=== PATIENT | female | born 1980 | race Caucasian/White ===

== ENCOUNTER 2017-11-18 19:28 | Emergency (ER) | payer OTHER ==
--- NOTE | 2017-11-18 19:41 | PDOC ---
Rapid Medical Evaluation Time Seen by Provider: 11/18/17 19:36 Medical Evaluation: Allergies Allergy/AdvReac Type Severity Reaction Status Date / Time No Known Allergies Allergy Verified 11/14/14 18:20 11/18/17 19:36 I have performed a brief in-person evaluation of this patient. The patient presents with a chief complaint of: "abscess with discharge" between breasts, subjective fever, hx of breast reduction, denies N/V/D, Dr. Caro told to put warm soaks Pertinent physical exam findings: TTP between breasts, only able to visualize small 3mm area of erythema to L breast I have ordered the following: nothing The patient will proceed to the ED for further evaluation. Discharge Disposition - Diagnosis Skin infection - Referrals - Patient Instructions - Post Discharge Activity
[2017-11-18 19:44] VITALS: BP 133/80; PULSE 91; TEMP 98.5; BMI 28.3
--- NOTE | 2017-11-18 20:32 | PDOC ---
History of Present Illness - General Chief Complaint: Abscess Boil Stated Complaint: BREAST PAIN Time Seen by Provider: 11/18/17 19:36 History Source: Patient Exam Limitations: No Limitations Past History - Past Medical History Allergies/Adverse Reactions: Allergies Allergy/AdvReac Type Severity Reaction Status Date / Time No Known Allergies Allergy Verified 11/14/14 18:20 Home Medications: Ambulatory Orders Cephalexin Monohydrate [Keflex -] 500 mg PO BID #14 capsule 11/18/17 Sulfamethoxazole/Trimethoprim [Bactrim Ds -] 1 tab PO BID #14 tablet 11/18/17 Asthma: No Cancer: No Cardiac Disorders: No COPD: No Diabetes: No HTN: No Seizures: No Thyroid Disease: No - Surgical History Cholecystectomy: Yes - Suicide/Smoking/Psychosocial Hx Smoking History: Never smoked Have you smoked in the past 12 months: No Hx Alcohol Use: No Drug/Substance Use Hx: No Hx Substance Use Treatment: No *Physical Exam - Vital Signs Last Vital Signs Temp Pulse Resp BP Pulse Ox 98.5 F 91 H 18 133/80 100 11/18/17 19:37 11/18/17 19:37 11/18/17 19:37 11/18/17 19:37 11/18/17 19:37 *DC/Admit/Observation/Transfer Diagnosis at time of Disposition: Skin infection, Abscess - Discharge Dispostion Disposition: HOME Condition at time of disposition: Stable Admit: No - Prescriptions Prescriptions: Cephalexin Monohydrate [Keflex -] 500 mg PO BID #14 capsule Sulfamethoxazole/Trimethoprim [Bactrim Ds -] 1 tab PO BID #14 tablet - Referrals Referrals: Scout Padilla MD [Primary Care Provider] - - Patient Instructions Printed Discharge Instructions: DI for Wound Infection Additional Instructions: You have an abscess. It is open and draining currently. Please take Bactrim and Keflex twice a day for one week to help with the infection. Please drink plenty of fluids. Continue with the warm water soaks to help drainage. You may have Tylenol or Motrin as needed for fevers and/or pain. Follow-up with Dr. Quiñones in 1 week. Return to the emergency department sooner if you have worsening fevers, chills, increased areas of redness, or any changes in your symptoms. - Post Discharge Activity Forms/Work/School Notes: Back to Work
== END 2017-11-18 22:50 | disposition home or self-care (01) ==
LOC: JER 19:28 → JERFT 19:28
DX: N61.1 Abscess of the breast and nipple (principal)
CPT/HCPCS: 87070; 87205; 99281-25

== ENCOUNTER 2019-10-11 17:35 | Emergency (ER) | payer BC, OTHER ==
[2019-10-11 17:42] VITALS: BP 114/93; PULSE 87; TEMP 97.9; BMI 31.2
--- NOTE | 2019-10-11 19:29 | PDOC ---
History of Present Illness - General Chief Complaint: Back Pain Stated Complaint: PAIN/SACRAL/R/LEG Time Seen by Provider: 10/11/19 18:20 - History of Present Illness Initial Comments: 10/11/19 19:28 39-year-old female with lower back pain and right posterior lateral leg radicular symptoms x2 days no precipitating traumatic event. She also has urinary frequency and urgency x2 days no systemic symptoms. No loss of bowel bladder function or saddle paresthesias Past History - Past Medical History Allergies/Adverse Reactions: Allergies Allergy/AdvReac Type Severity Reaction Status Date / Time No Known Allergies Allergy Verified 10/11/19 17:39 Home Medications: Ambulatory Orders Cyclobenzaprine HCl [Flexeril 10 mg] 10 mg PO HS PRN #10 tablet 10/11/19 Ibuprofen [Motrin -] 600 mg PO TID #30 tablet 10/11/19 Asthma: No Cancer: No Cardiac Disorders: No COPD: No Diabetes: No HTN: No Seizures: No Thyroid Disease: No Other medical history: DENIES - Surgical History Cholecystectomy: Yes - Immunization History Immunization Up to Date: Yes - Psycho Social/Smoking Cessation Hx Smoking History: Never smoked Have you smoked in the past 12 months: No Hx Alcohol Use: No Drug/Substance Use Hx: No Hx Substance Use Treatment: No Review of Systems - Review of Systems Constitutional: No: Fever : Yes: Frequency, Urgency. No: Burning, Dysuria, Hematuria, Pain Musculoskeletal: Yes: Back Pain *Physical Exam - Vital Signs Last Vital Signs Temp Pulse Resp BP Pulse Ox 97.9 F 87 18 114/93 100 10/11/19 17:40 10/11/19 17:40 10/11/19 17:40 10/11/19 17:40 10/11/19 17:40 - Physical Exam 10/11/19 19:29 Lumbar spine skin color and temperature normal range of motion is full. Mild right and left paralumbar musculature spasm and tenderness. No midline tenderness. 5 out of 5 strength bilateral lower extremities without gross sensorimotor deficits negative straight leg raise test bilaterally neurovascular intact thighs and calves are soft and nontender. Medical Decision Making - Medical Decision Making 10/11/19 20:01 Motrin and Flexeril for lumbar radicular symptoms follow-up with spine surgery Discharge - Discharge Information Problems reviewed: Yes Clinical Impression/Diagnosis: Lumbar radiculitis Condition: Stable Disposition: HOME - Admission No - Follow up/Referral Referrals: Scout Padilla MD [Primary Care Provider] - Alexandre Trevino MD, FA[facility] [Staff Physician] - - Patient Discharge Instructions Additional Instructions: Please take the Motrin and Flexeril as directed and return to the emergency room should symptoms worsen. Without fail please follow-up with spine surgery in 2 to 3 days for further evaluation and treatment options. - Post Discharge Activity
[2019-10-11 19:50] LABS: URINE APPEARANCE CLEAR; URINE BILIRUBIN NEGATIVE (NEGATIVE); URINE COLOR YELLOW; URINE GLUCOSE (UA) NEGATIVE (NEGATIVE); URINE KETONE NEGATIVE (NEGATIVE); URINE LEUK ESTERASE NEGATIVE (NEGATIVE); URINE NITRITE NEGATIVE (NEGATIVE); URINE PROTEIN NEGATIVE (NEGATIVE); URINE UROBILINOGEN 0.2 mg/dL (0.2-1.0)
== END 2019-10-11 20:13 | disposition home or self-care (01) ==
LOC: JERFT 17:35
DX: M54.16 Radiculopathy, lumbar region (principal)
CPT/HCPCS: 81003; 84703; 87086; 99283-25

== ENCOUNTER 2022-03-16 00:44 | Emergency (ER) | payer BC, OTHER ==
[2022-03-16 01:01] VITALS: BP 116/81; PULSE 80; TEMP 98.1; BMI 31.2
[2022-03-16] MEDS ORDERED: KETOROLAC TROMETHAMINE 15 MG/ML VIAL IM ONE (02:33)
[2022-03-16] MEDS ORDERED: KETOROLAC TROMETHAMINE 15 MG/ML VIAL ONE (02:46)
[2022-03-16 03:37] LABS: BASO % 0.6 % (0-2.0); EOS % 2.2 % (0-4.5); HEMATOCRIT 41.1 % (32.4-45.2); HEMOGLOBIN 13.4 GM/dL (10.7-15.3); LYMPH % 33.7 % (8-40); MCHC 32.6 g/dl (32.0-36.0); MEAN CELL VOLUME 85.7 fl (80-96); MEAN PLT VOLUME 7.5 fl (7.5-11.1); MONO % 5.4 % (3.8-10.2); NEUT % 58.1 % (42.8-82.8); PLATELET COUNT 420 10^3/uL (134-434); RBC 4.79 M/mm3 (3.60-5.2); WHITE BLOOD COUNT 9.4 K/mm3 (4.0-10.0)
[2022-03-16 04:14] LABS: ALBUMIN 3.7 g/dl (3.4-5.0); CALCIUM 9.3 mg/dL (8.5-10.1)
[2022-03-16 04:15] LABS: BLOOD UREA NITROGEN 13.2 mg/dL (7-18)
[2022-03-16 04:18] LABS: CREATININE 0.8 mg/dL (0.55-1.3)
[2022-03-16 04:19] LABS: BILIRUBIN,TOTAL 0.3 mg/dL (0.2-1); TOT PROT 7.3 g/dl (6.4-8.2)
== END 2022-03-16 06:34 | disposition home or self-care (01) ==
LOC: JER 00:44
PROC: 3E0233Z Introduction of Anti-inflammatory into Muscle, Percutaneous Approach (ICD-10-PCS; principal; 2022-03-16)
DX: M79.602 Pain in left arm (principal)
CPT/HCPCS: 36415; 71046-TC-FY; 80053; 84484; 85025; 93005; 93010; 96372; 99285-25

== ENCOUNTER 2024-04-08 11:20 | Emergency (ER) | payer OTHER ==
[2024-04-08 11:40] VITALS: TEMP 97.9; BMI 34.0
[2024-04-08] MEDS ORDERED: ACETAMINOPHEN 325 MG TABLET (FP) ONE (13:12)
[2024-04-08] MEDS ORDERED: KETOROLAC TROMETHAMINE 15 MG/ML VIAL ONE (13:13)
[2024-04-08] MEDS ORDERED: LIDOCAINE 4% PATCH TP ONE (13:13)
[2024-04-08] MEDS: KETOROLAC TROMETHAMINE 15 MG/ML VIAL IM ONE (14:09)
[2024-04-08] MEDS: LIDOCAINE 4% PATCH TP ONE (14:09)
[2024-04-08] MEDS: ACETAMINOPHEN 325 MG TABLET (FP) PO ONE (14:10)
[2024-04-08] MEDS ORDERED: DEXAMETHASONE SOD PHOSPHATE 4 MG/1 ML VIAL IM ONE (15:08)
[2024-04-08] MEDS ORDERED: diazePAM 2 MG TABLET PO ONE (15:08)
[2024-04-08] MEDS: predniSONE 20 MG TABLET (UD) PO ONE (16:28)
[2024-04-08] MEDS ORDERED: predniSONE 20 MG TABLET (UD) ONE (16:28)
[2024-04-08] MEDS: diazePAM CARPU-JECT 10 MG/2 ML DISP.SYRIN IVPUSH ONE (16:32)
[2024-04-08] MEDS: morphine CARPU-JECT 4 MG/1 ML DISP.SYRIN IVPUSH ONE (16:32)
[2024-04-08 17:22] VITALS: BP 120/78; PULSE 72; RESP 15
[2024-04-08] MEDS ORDERED: LIDOCAINE PATCH REMOVAL MC ONE (22:00)
== END 2024-04-08 17:22 | disposition home or self-care (01) ==
LOC: JER 11:20
PROC: 3E0233Z Introduction of Anti-inflammatory into Muscle, Percutaneous Approach (ICD-10-PCS; principal; 2024-04-08)
DX: M54.50 Low back pain, unspecified (principal)
CPT/HCPCS: 72131-TC; 84703; 99284-25